=== PATIENT | female | born 1970 | race Caucasian/White ===

== ENCOUNTER 2024-10-18 17:00 | Emergency (ER) | payer OTHER ==
[2024-10-18] MEDS: Potassium Chloride 20 MEQ Tab.ER PO ONE (19:15)
[2024-10-18] MEDS: Sodium Chloride 0.9% 10 ML Syringe FLUSH PRN (19:15)
[2024-10-18] MEDS: Lactated Ringers 1,000 ML IV ONE (19:16)
== END 2024-10-18 20:31 | disposition home or self-care (01) ==
LOC: JP.ED 17:00
DX: E86.0 Dehydration (principal); E87.6 Hypokalemia; E78.00 Pure hypercholesterolemia, unspecified; I10 Essential (primary) hypertension; E11.9 Type 2 diabetes mellitus without complications; Z79.899 Other long term (current) drug therapy
CPT/HCPCS: 96361; 96374; 99283; A9270; J1790; J7120